=== PATIENT | male | born 1980 | race Caucasian/White ===

== ENCOUNTER 2023-05-16 05:55 | Emergency (ER) | payer OTHER ==
[~2023-05-16] VITALS: Ht 177.8 cm; Wt 136.1 kg
--- NOTE | 2023-05-16 05:55 | NUR ---
PT BIB [facility], PREBOOK. TAKEN TO CHAIR
[2023-05-16 06:04] VITALS: BP 132/71; PULSE 116; RESP 17; TEMP 98.9; O2SAT 98
[2023-05-16 06:08] VITALS: BP 132/71; PULSE 116; RESP 17; TEMP 98.9; O2SAT 98
--- NOTE | 2023-05-16 07:24 | NUR ---
PATIENT BIB [facility] POLICE DEPT. PATIENT EXAMINED BY . PATIENT MEDICALLY CLEARED AND RELEASED IN CUSTODY IN STABLE CONDITION. ORIGINAL PRE-BOOK FORM GIVEN TO OFFICER.
== END 2023-05-16 07:20 | disposition home or self-care (01) ==
LOC: MED 05:55
DX: Z02.89 Encounter for other administrative examinations (principal); V89.2XXA Person injured in unspecified motor-vehicle accident, traffic, initial encounter; Y93.89 Activity, other specified; Y92.410 Unspecified street and highway as the place of occurrence of the external cause; Y99.8 Other external cause status
CPT/HCPCS: 99283